=== PATIENT | male | born 1945 | race Caucasian/White ===

== ENCOUNTER 2018-12-26 09:19 | Inpatient (IN) | payer MEDICARE, OTHER ==
[~2018-12-26] VITALS: Ht 171.4 cm; Wt 78.6 kg
[~2018-12-26 09:19] MED LIST: APIX5TAB PO; ASPI-556 PO; BUSP5TAB20 PO; GLIP10 PO; HYDR25TA PO; METF-960 PO; METO25 PO; SERT50TA12 PO; SIMV-259 PO
[2018-12-26] MEDS ORDERED: WARF1 PO (09:50)
[2018-12-26] MEDS ORDERED: METO25 PO (09:50)
[2018-12-26 10:07] LABS: BASOPHILS % (AUTO) 0.1 % (0.0-2.0); EOSINOPHILS % (AUTO) 0.4 % (1.0-6.0); HEMATOCRIT 44.1 % (41-53); HEMOGLOBIN 14.9 g/dL (13.5-17.5); LYMPHOCYTES # (AUTO) 0.7 K/uL (1.0-4.8); LYMPHOCYTES % (AUTO) 9.8 % (22.0-44.0); MEAN CORPUSCULAR HEMOGLOBIN 30.3 pg (26.0-34.0); MEAN CORPUSCULAR HGB CONC 33.7 G/dL (31.0-37.0); MEAN CORPUSCULAR VOLUME 90 fL (80-100); MONOCYTES # (AUTO) 0.5 K/uL (0.1-1.0); MONOCYTES % (AUTO) 6.6 % (2.0-9.0); NEUTROPHILS # (AUTO) 6.1 K/uL (1.8-7.7); NEUTROPHILS % (AUTO) 83.1 % (40.0-70.0); PLATELET COUNT (AUTO) 164 K/uL (150-450); RED BLOOD CELL COUNT(AUTO) 4.89 MIL/uL (4.50-5.90); RED CELL DISTRIBUTION WIDTH 13.3 % (11.5-14.5)
[2018-12-26 10:25] LABS: ANION GAP 8 mmol/L (8-16); CALCIUM, TOTAL 10.6 mg/dL (8.8-10.5); CARBON DIOXIDE 26 mmol/L (22-29); CHLORIDE 101 mmol/L (98-107); CREATININE 1.31 mg/dL (0.60-1.30); GLOMERULAR FILTR. RATE CALC 54 mL/min (>60); GLUCOSE,RANDOM 205 mg/dL (70-110); POTASSIUM 4.8 mmol/L (3.5-5.1); SALICYLATE < 2.8 mg/dL (2.8-20.0); SODIUM SERUM 135 mmol/L (136-145); UREA NITROGEN, BLOOD 27 mg/dL (7-18)
[2018-12-26 10:31] LABS: ALANINE AMINOTRANSFERASE 53 U/L (12-78); ALBUMIN 3.8 g/dL (3.4-5.0); ALKALINE PHOSPHATASE 120 U/L (46-116); ASPARTATE AMINOTRANSFERASE 38 U/L (15-37); BILIRUBIN,TOTAL 0.4 mg/dL (0.1-1.0); TOTAL PROTEIN, SERUM 7.2 g/dL (6.4-8.2)
[2018-12-26 10:31] LABS: GLUCOSE,POINT OF CARE 172 MG/DL (70-110)
[2018-12-26 10:35] LABS: ACETAMINOPHEN < 2 mcg/mL (10-30)
[2018-12-26 11:55] LABS: PROTHROMBIN TIME 10.5 SEC (9.4-11.6)
[2018-12-26] MEDS ORDERED: IBUPROFEN 600 MG TABLET PO ONE (12:45)
[2018-12-26 13:53] LABS: AMPHET/METH SCREEN,URINE NEGATIVE (NEGATIVE); BARBITURATE SCREEN, URINE NEGATIVE (NEGATIVE); BENZODIAZEPINES SCREEN,URINE NEGATIVE (NEGATIVE); CANNABINOID SCREEN,URINE NEGATIVE (NEGATIVE); COCAINE SCREEN,URINE NEGATIVE (NEGATIVE); METHADONE SCREEN, URINE NEGATIVE (NEGATIVE); OPIATE SCREEN,URINE NEGATIVE (NEGATIVE)
[2018-12-26 13:58] LABS: PHENCYCLIDINE SCREEN,URINE NEGATIVE (NEGATIVE)
[2018-12-26] MEDS ORDERED: MAGNESIUM HYDROXIDE SUSPENSION 30 ML UDCUP PO PRN (14:00)
[2018-12-26] MEDS ORDERED: 0.9% SODIUM CHLORIDE 10 ML SYRINGE IVP PRN (14:00)
[2018-12-26] MEDS ORDERED: ONDANSETRON HCL 4 MG/2 ML VIAL IVP PRN (14:00)
[2018-12-26] MEDS ORDERED: DEXTROSE 50%-WATER 25 GM/50 ML SYRINGE IVP PRN (14:00)
[2018-12-26] MEDS ORDERED: BISACODYL 10 MG RECTAL RECTAL SUPPOSITORY PR PRN (14:00)
[2018-12-26] MEDS ORDERED: BARIUM SULFATE 0.1% SUSPENSION 450 ML BOTTLE ONE (15:30)
[2018-12-26] MEDS ORDERED: BARIUM SULFATE 0.1% SUSPENSION 450 ML BOTTLE PO ONE (15:30)
[2018-12-26] MEDS: ACETAMINOPHEN 325 MG TABLET PO PRN ×2 (16:45→21:18)
[2018-12-26 18:10] VITALS: BP 139/90
[2018-12-26] MEDS ORDERED: INFLUENZA VIRUS VACCINE QVS 2019-20 (3YR+)/PF 60 MCG/0.5 ML SYRINGE IM ONE (19:15)
[2018-12-26 20:15] VITALS: BP 103/51
[2018-12-26] MEDS: DOCUSATE SODIUM 100 MG CAPSULE PO SCH (20:24)
[2018-12-26] MEDS: FAMOTIDINE 20 MG TABLET PO SCH (20:24)
[2018-12-26] MEDS: METOPROLOL TARTRATE 25 MG TABLET PO SCH (20:24)
[2018-12-26] MEDS: APIXABAN 5 MG TABLET PO SCH (21:38)
[2018-12-26] MEDS: INSULIN LISPRO 100 UNITS/ML SQ PRN (21:45)
[2018-12-26] MEDS: ZOLPIDEM TARTRATE 5 MG TABLET PO PRN (22:35)
[2018-12-27 00:20] VITALS: BP 114/56
[2018-12-27 05:12] VITALS: BP 125/70
[2018-12-27] MEDS: ACETAMINOPHEN 325 MG TABLET PO PRN ×2 (05:47→20:41)
[2018-12-27] MEDS: INSULIN LISPRO 100 UNITS/ML SQ PRN ×4 (06:18→21:30)
[2018-12-27 06:19] LABS: BASOPHILS % (AUTO) 0.4 % (0.0-2.0); EOSINOPHILS % (AUTO) 3.1 % (1.0-6.0); HEMATOCRIT 43.8 % (41-53); HEMOGLOBIN 14.7 g/dL (13.5-17.5); LYMPHOCYTES # (AUTO) 1.4 K/uL (1.0-4.8); LYMPHOCYTES % (AUTO) 25.5 % (22.0-44.0); MEAN CORPUSCULAR HEMOGLOBIN 30.6 pg (26.0-34.0); MEAN CORPUSCULAR HGB CONC 33.7 G/dL (31.0-37.0); MEAN CORPUSCULAR VOLUME 91 fL (80-100); MONOCYTES # (AUTO) 0.5 K/uL (0.1-1.0); MONOCYTES % (AUTO) 9.8 % (2.0-9.0); NEUTROPHILS # (AUTO) 3.4 K/uL (1.8-7.7); NEUTROPHILS % (AUTO) 61.2 % (40.0-70.0); PLATELET COUNT (AUTO) 164 K/uL (150-450); RED BLOOD CELL COUNT(AUTO) 4.82 MIL/uL (4.50-5.90); RED CELL DISTRIBUTION WIDTH 13.4 % (11.5-14.5)
[2018-12-27 06:25] LABS: CALCIUM, TOTAL 10.7 mg/dL (8.8-10.5); CREATININE 1.25 mg/dL (0.60-1.30); POTASSIUM 4.7 mmol/L (3.5-5.1)
[2018-12-27 07:52] VITALS: BP 127/69
[2018-12-27] MEDS: APIXABAN 5 MG TABLET PO SCH ×2 (08:26→20:40)
[2018-12-27] MEDS: METOPROLOL TARTRATE 25 MG TABLET PO SCH ×2 (08:26→20:41)
[2018-12-27] MEDS: SIMVASTATIN 10 MG TABLET PO SCH (08:26)
[2018-12-27] MEDS: DOCUSATE SODIUM 100 MG CAPSULE PO SCH ×2 (08:26→20:40)
[2018-12-27] MEDS: FAMOTIDINE 20 MG TABLET PO SCH ×2 (08:26→20:40)
[2018-12-27 09:48] LABS: HEMOGLOBIN A1C 8.3 % (4.5-6.2)
[2018-12-27 10:46] LABS: GLUCOMETER DEV NAME(LOC) 5N.1; GLUCOSE,POINT OF CARE 152 MG/DL (70-110)
[2018-12-27 10:46] LABS: GLUCOMETER DEV NAME(LOC) 5N.1; GLUCOSE,POINT OF CARE 111 MG/DL (70-110)
[2018-12-27 11:46] VITALS: BP 136/66
[2018-12-27 11:46] LABS: GLUCOMETER DEV NAME(LOC) 5S.1; GLUCOSE,POINT OF CARE 65 MG/DL (70-110)
[2018-12-27] MEDS: GABAPENTIN 100 MG CAPSULE PO SCH ×3 (11:50→20:40)
[2018-12-27 16:14] VITALS: BP 114/70
[2018-12-27 19:52] VITALS: BP 117/67
[2018-12-27 20:41] LABS: GLUCOMETER DEV NAME(LOC) 5N.1; GLUCOSE,POINT OF CARE 191 MG/DL (70-110)
[2018-12-27] MEDS ORDERED: LORazepam 2 MG/ML VIAL IVP ONE (22:30)
[2018-12-28] VITALS (7 sets, daily range): BP systolic 103–140; BP diastolic 57–80
[2018-12-28 00:11] LABS: GLUCOMETER DEV NAME(LOC) 5N.2; GLUCOSE,POINT OF CARE 351 MG/DL (70-110)
[2018-12-28 00:12] LABS: GLUCOMETER DEV NAME(LOC) 5S.1; GLUCOSE,POINT OF CARE 129 MG/DL (70-110)
[2018-12-28] MEDS: INSULIN LISPRO 100 UNITS/ML SQ PRN ×4 (06:20→21:22)
[2018-12-28 07:50] LABS: GLUCOMETER DEV NAME(LOC) 5N.2; GLUCOSE,POINT OF CARE 203 MG/DL (70-110)
[2018-12-28 08:55] LABS: BASOPHILS % (AUTO) 0.4 % (0.0-2.0); EOSINOPHILS % (AUTO) 2.8 % (1.0-6.0); HEMOGLOBIN 15.3 g/dL (13.5-17.5); LYMPHOCYTES % (AUTO) 12.5 % (22.0-44.0); MEAN CORPUSCULAR HEMOGLOBIN 30.7 pg (26.0-34.0); MEAN CORPUSCULAR VOLUME 90 fL (80-100); MONOCYTES # (AUTO) 0.7 K/uL (0.1-1.0); MONOCYTES % (AUTO) 8.5 % (2.0-9.0); NEUTROPHILS # (AUTO) 6.4 K/uL (1.8-7.7); NEUTROPHILS % (AUTO) 75.8 % (40.0-70.0); PLATELET COUNT (AUTO) 173 K/uL (150-450); RED BLOOD CELL COUNT(AUTO) 4.98 MIL/uL (4.50-5.90); RED CELL DISTRIBUTION WIDTH 13.1 % (11.5-14.5)
[2018-12-28] MEDS: METOPROLOL TARTRATE 25 MG TABLET PO SCH ×2 (09:08→21:16)
[2018-12-28] MEDS: GABAPENTIN 100 MG CAPSULE PO SCH ×3 (09:08→21:16)
[2018-12-28] MEDS: APIXABAN 5 MG TABLET PO SCH ×2 (09:08→21:16)
[2018-12-28] MEDS: SIMVASTATIN 10 MG TABLET PO SCH (09:09)
[2018-12-28] MEDS: DOCUSATE SODIUM 100 MG CAPSULE PO SCH ×2 (09:09→21:16)
[2018-12-28] MEDS: FAMOTIDINE 20 MG TABLET PO SCH ×2 (09:09→21:16)
[2018-12-28 09:17] LABS: ANION GAP 7 mmol/L (8-16); CALCIUM, TOTAL 10.2 mg/dL (8.8-10.5); CARBON DIOXIDE 28 mmol/L (22-29); CHLORIDE 106 mmol/L (98-107); CREATININE 1.14 mg/dL (0.60-1.30); GLUCOSE,RANDOM 169 mg/dL (70-110); POTASSIUM 4.4 mmol/L (3.5-5.1); SODIUM SERUM 141 mmol/L (136-145); UREA NITROGEN, BLOOD 27 mg/dL (7-18)
[2018-12-28 09:18] LABS: GLOMERULAR FILTR. RATE CALC > 60 mL/min (>60)
[2018-12-28] MEDS: SERTRALINE HCL 100 MG TABLET PO SCH (15:22)
[2018-12-28 19:30] LABS: GLUCOMETER DEV NAME(LOC) 5N.1; GLUCOSE,POINT OF CARE 202 MG/DL (70-110)
[2018-12-28 20:00] LABS: GLUCOMETER DEV NAME(LOC) 5S.1; GLUCOSE,POINT OF CARE 273 MG/DL (70-110)
[2018-12-28] MEDS ORDERED: QUEtiapine FUMARATE 25 MG TABLET PO SCH (21:00)
[2018-12-28] MEDS: ZOLPIDEM TARTRATE 5 MG TABLET PO PRN (23:01)
[2018-12-29 03:55] LABS: GLUCOMETER DEV NAME(LOC) 5N.2; GLUCOSE,POINT OF CARE 207 MG/DL (70-110)
[2018-12-29] MEDS: INSULIN LISPRO 100 UNITS/ML SQ PRN ×4 (06:08→20:57)
[2018-12-29 06:14] VITALS: BP 127/72
[2018-12-29 06:51] LABS: GLUCOMETER DEV NAME(LOC) 5N.2; GLUCOSE,POINT OF CARE 172 MG/DL (70-110)
[2018-12-29 07:30] VITALS: BP 113/71
[2018-12-29] MEDS: GABAPENTIN 100 MG CAPSULE PO SCH ×3 (07:36→20:53)
[2018-12-29 07:46] LABS: RED BLOOD CELL COUNT(AUTO) 4.99 MIL/uL (4.50-5.90)
[2018-12-29 07:47] LABS: BASOPHILS % (AUTO) 0.3 % (0.0-2.0); EOSINOPHILS % (AUTO) 2.4 % (1.0-6.0); HEMOGLOBIN 15.1 g/dL (13.5-17.5); LYMPHOCYTES # (AUTO) 1.2 K/uL (1.0-4.8); LYMPHOCYTES % (AUTO) 14.8 % (22.0-44.0); MEAN CORPUSCULAR HEMOGLOBIN 30.2 pg (26.0-34.0); MEAN CORPUSCULAR HGB CONC 33.5 G/dL (31.0-37.0); MEAN CORPUSCULAR VOLUME 90 fL (80-100); MONOCYTES # (AUTO) 0.8 K/uL (0.1-1.0); MONOCYTES % (AUTO) 10.4 % (2.0-9.0); NEUTROPHILS # (AUTO) 5.8 K/uL (1.8-7.7); NEUTROPHILS % (AUTO) 72.1 % (40.0-70.0); PLATELET COUNT (AUTO) 164 K/uL (150-450); RED CELL DISTRIBUTION WIDTH 12.9 % (11.5-14.5)
[2018-12-29 08:02] LABS: ANION GAP 8 mmol/L (8-16); CALCIUM, TOTAL 10.6 mg/dL (8.8-10.5); CARBON DIOXIDE 27 mmol/L (22-29); CHLORIDE 104 mmol/L (98-107); CREATININE 1.09 mg/dL (0.60-1.30); GLUCOSE,RANDOM 187 mg/dL (70-110); POTASSIUM 4.3 mmol/L (3.5-5.1); SODIUM SERUM 139 mmol/L (136-145); UREA NITROGEN, BLOOD 31 mg/dL (7-18)
[2018-12-29 08:07] LABS: GLOMERULAR FILTR. RATE CALC > 60 mL/min (>60)
[2018-12-29] MEDS: SIMVASTATIN 10 MG TABLET PO SCH (08:15)
[2018-12-29] MEDS: DOCUSATE SODIUM 100 MG CAPSULE PO SCH ×2 (08:15→20:53)
[2018-12-29] MEDS: APIXABAN 5 MG TABLET PO SCH ×2 (08:15→20:53)
[2018-12-29] MEDS: METOPROLOL TARTRATE 25 MG TABLET PO SCH ×2 (08:15→20:53)
[2018-12-29] MEDS: FAMOTIDINE 20 MG TABLET PO SCH ×2 (08:15→20:53)
[2018-12-29] MEDS: SERTRALINE HCL 100 MG TABLET PO SCH (08:16)
[2018-12-29 11:37] VITALS: BP 114/67
[2018-12-29] MEDS: BusPIRone HCL 5 MG TABLET PO SCH ×2 (15:25→20:53)
[2018-12-29] MEDS: ACETAMINOPHEN 325 MG TABLET PO PRN (15:25)
[2018-12-29 16:05] VITALS: BP 121/66
[2018-12-29 19:40] LABS: GLUCOMETER DEV NAME(LOC) 5S.1; GLUCOSE,POINT OF CARE 286 MG/DL (70-110)
[2018-12-29 19:40] LABS: GLUCOMETER DEV NAME(LOC) 5S.1; GLUCOSE,POINT OF CARE 263 MG/DL (70-110)
[2018-12-29 19:41] VITALS: BP 112/64
[2018-12-29] MEDS: ZOLPIDEM TARTRATE 5 MG TABLET PO PRN (22:42)
[2018-12-29 23:06] VITALS: BP 124/71
[2018-12-30 04:13] VITALS: BP 115/68
[2018-12-30 04:51] LABS: GLUCOMETER DEV NAME(LOC) 5N.1; GLUCOSE,POINT OF CARE 251 MG/DL (70-110)
[2018-12-30] MEDS: INSULIN LISPRO 100 UNITS/ML SQ PRN ×4 (06:07→20:09)
[2018-12-30] MEDS: GABAPENTIN 100 MG CAPSULE PO SCH ×3 (07:45→20:07)
[2018-12-30 07:50] VITALS: BP 108/54
[2018-12-30 08:01] LABS: GLUCOMETER DEV NAME(LOC) 5S.1; GLUCOSE,POINT OF CARE 178 MG/DL (70-110)
[2018-12-30] MEDS: FAMOTIDINE 20 MG TABLET PO SCH ×2 (08:13→20:06)
[2018-12-30] MEDS: BusPIRone HCL 5 MG TABLET PO SCH ×3 (08:13→20:07)
[2018-12-30] MEDS: DOCUSATE SODIUM 100 MG CAPSULE PO SCH ×2 (08:13→20:07)
[2018-12-30] MEDS: SERTRALINE HCL 100 MG TABLET PO SCH (08:15)
[2018-12-30] MEDS: SIMVASTATIN 10 MG TABLET PO SCH (08:44)
[2018-12-30] MEDS: APIXABAN 5 MG TABLET PO SCH ×2 (08:44→20:06)
[2018-12-30] MEDS: METOPROLOL TARTRATE 25 MG TABLET PO SCH ×2 (09:00→20:07)
[2018-12-30 11:47] VITALS: BP 120/65
[2018-12-30] MEDS ORDERED: GABA-529 PO (13:16)
[2018-12-30] MEDS ORDERED: SERT100T12 PO (13:17)
[2018-12-30] MEDS ORDERED: BUSP5TAB20 PO (13:17)
[2018-12-30 15:15] VITALS: BP 113/57
[2018-12-30 19:45] VITALS: BP 109/62
[2018-12-30] MEDS: ACETAMINOPHEN 325 MG TABLET PO PRN (19:50)
[2018-12-30 20:00] LABS: GLUCOMETER DEV NAME(LOC) 5S.1; GLUCOSE,POINT OF CARE 260 MG/DL (70-110)
[2018-12-30 20:00] LABS: GLUCOMETER DEV NAME(LOC) 5N.1; GLUCOSE,POINT OF CARE 241 MG/DL (70-110)
[2018-12-30 20:30] LABS: GLUCOMETER DEV NAME(LOC) 5S.2A; GLUCOSE,POINT OF CARE 253 MG/DL (70-110)
[2018-12-30] MEDS: ZOLPIDEM TARTRATE 5 MG TABLET PO PRN (22:32)
[2018-12-31] VITALS (7 sets, daily range): BP systolic 113–126; BP diastolic 62–73
[2018-12-31] MEDS: ACETAMINOPHEN 325 MG TABLET PO PRN ×3 (05:39→20:05)
[2018-12-31] MEDS: INSULIN LISPRO 100 UNITS/ML SQ PRN ×4 (05:41→22:02)
[2018-12-31 06:01] LABS: BASOPHILS % (AUTO) 0.4 % (0.0-2.0); HEMATOCRIT 42.2 % (41-53); LYMPHOCYTES # (AUTO) 0.9 K/uL (1.0-4.8); MEAN CORPUSCULAR HEMOGLOBIN 30.3 pg (26.0-34.0); MEAN CORPUSCULAR HGB CONC 33.3 G/dL (31.0-37.0); MEAN CORPUSCULAR VOLUME 91 fL (80-100); MONOCYTES # (AUTO) 0.7 K/uL (0.1-1.0); MONOCYTES % (AUTO) 10.5 % (2.0-9.0); NEUTROPHILS # (AUTO) 4.4 K/uL (1.8-7.7); NEUTROPHILS % (AUTO) 70.1 % (40.0-70.0); PLATELET COUNT (AUTO) 148 K/uL (150-450); RED BLOOD CELL COUNT(AUTO) 4.64 MIL/uL (4.50-5.90); RED CELL DISTRIBUTION WIDTH 12.7 % (11.5-14.5)
[2018-12-31 06:14] LABS: CALCIUM, TOTAL 9.5 mg/dL (8.8-10.5); CREATININE 1.19 mg/dL (0.60-1.30); POTASSIUM 4.9 mmol/L (3.5-5.1)
[2018-12-31 06:46] LABS: GLUCOMETER DEV NAME(LOC) 5S.1; GLUCOSE,POINT OF CARE 244 MG/DL (70-110)
[2018-12-31] MEDS: FAMOTIDINE 20 MG TABLET PO SCH ×2 (08:11→20:06)
[2018-12-31] MEDS: METOPROLOL TARTRATE 25 MG TABLET PO SCH ×2 (08:11→20:05)
[2018-12-31] MEDS: SIMVASTATIN 10 MG TABLET PO SCH (08:11)
[2018-12-31] MEDS: GABAPENTIN 100 MG CAPSULE PO SCH ×3 (08:11→20:05)
[2018-12-31] MEDS: APIXABAN 5 MG TABLET PO SCH ×2 (08:11→20:05)
[2018-12-31] MEDS: DOCUSATE SODIUM 100 MG CAPSULE PO SCH ×2 (08:11→20:05)
[2018-12-31] MEDS: SERTRALINE HCL 100 MG TABLET PO SCH (08:11)
[2018-12-31] MEDS: BusPIRone HCL 5 MG TABLET PO SCH ×3 (08:11→20:05)
[2018-12-31] MEDS ORDERED: LORazepam 2 MG/ML VIAL IVP ONE ×2 (14:30→16:15)
[2018-12-31] MEDS: ZOLPIDEM TARTRATE 5 MG TABLET PO PRN (21:58)
[2018-12-31 22:46] LABS: GLUCOMETER DEV NAME(LOC) 5N.2; GLUCOSE,POINT OF CARE 240 MG/DL (70-110)
[2018-12-31 22:46] LABS: GLUCOMETER DEV NAME(LOC) 5N.2; GLUCOSE,POINT OF CARE 188 MG/DL (70-110)
[2019-01-01 00:07] VITALS: BP 114/71
[2019-01-01 02:15] LABS: GLUCOMETER DEV NAME(LOC) 5N.1; GLUCOSE,POINT OF CARE 277 MG/DL (70-110)
[2019-01-01] MEDS: ACETAMINOPHEN 325 MG TABLET PO PRN (04:20)
[2019-01-01 04:25] VITALS: BP 138/67
[2019-01-01 05:56] LABS: GLUCOMETER DEV NAME(LOC) 5S.1; GLUCOSE,POINT OF CARE 289 MG/DL (70-110)
[2019-01-01 06:45] LABS: BASOPHILS % (AUTO) 0.5 % (0.0-2.0); EOSINOPHILS % (AUTO) 0.4 % (1.0-6.0); HEMATOCRIT 42.3 % (41-53); HEMOGLOBIN 14.3 g/dL (13.5-17.5); LYMPHOCYTES # (AUTO) 0.4 K/uL (1.0-4.8); LYMPHOCYTES % (AUTO) 8.1 % (22.0-44.0); MEAN CORPUSCULAR HEMOGLOBIN 30.3 pg (26.0-34.0); MEAN CORPUSCULAR HGB CONC 33.9 G/dL (31.0-37.0); MEAN CORPUSCULAR VOLUME 89 fL (80-100); MONOCYTES # (AUTO) 0.6 K/uL (0.1-1.0); MONOCYTES % (AUTO) 11.8 % (2.0-9.0); NEUTROPHILS # (AUTO) 3.9 K/uL (1.8-7.7); NEUTROPHILS % (AUTO) 79.2 % (40.0-70.0); PLATELET COUNT (AUTO) 133 K/uL (150-450); RED BLOOD CELL COUNT(AUTO) 4.73 MIL/uL (4.50-5.90); RED CELL DISTRIBUTION WIDTH 12.7 % (11.5-14.5)
[2019-01-01 06:46] LABS: CALCIUM, TOTAL 9.7 mg/dL (8.8-10.5); CREATININE 1.23 mg/dL (0.60-1.30); POTASSIUM 4.4 mmol/L (3.5-5.1)
[2019-01-01] MEDS: SERTRALINE HCL 100 MG TABLET PO SCH (07:47)
[2019-01-01] MEDS: DOCUSATE SODIUM 100 MG CAPSULE PO SCH (07:47)
[2019-01-01] MEDS: SIMVASTATIN 10 MG TABLET PO SCH (07:47)
[2019-01-01] MEDS: METOPROLOL TARTRATE 25 MG TABLET PO SCH (07:47)
[2019-01-01] MEDS: APIXABAN 5 MG TABLET PO SCH (07:47)
[2019-01-01] MEDS: FAMOTIDINE 20 MG TABLET PO SCH (07:47)
[2019-01-01] MEDS: GABAPENTIN 100 MG CAPSULE PO SCH (07:47)
[2019-01-01] MEDS: BusPIRone HCL 5 MG TABLET PO SCH (07:48)
[2019-01-01] MEDS: INSULIN LISPRO 100 UNITS/ML SQ PRN ×2 (07:53→11:17)
[2019-01-01 07:56] VITALS: BP 115/65
[2019-01-01 11:48] VITALS: BP 115/66
[2019-01-01 14:46] LABS: GLUCOMETER DEV NAME(LOC) 5N.2; GLUCOSE,POINT OF CARE 229 MG/DL (70-110)
[2019-01-02 07:36] LABS: GLUCOMETER DEV NAME(LOC) 5S.2A; GLUCOSE,POINT OF CARE 197 MG/DL (70-110)
== END 2019-01-01 14:20 | DRG 918 ==
LOC: EMS 09:27 → 5S 16:45
PROVIDERS: ADMIT Internal Medicine; ATTEND Internal Medicine
DX: T43.222A Poisoning by selective serotonin reuptake inhibitors, intentional self-harm, initial encounter (principal); F33.2 Major depressive disorder, recurrent severe without psychotic features; E11.9 Type 2 diabetes mellitus without complications; E78.00 Pure hypercholesterolemia, unspecified; I10 Essential (primary) hypertension; I25.10 Atherosclerotic heart disease of native coronary artery without angina pectoris; I48.91 Unspecified atrial fibrillation; F41.9 Anxiety disorder, unspecified; Z63.9 Problem related to primary support group, unspecified; Z79.899 Other long term (current) drug therapy; Z85.51 Personal history of malignant neoplasm of bladder; Z86.718 Personal history of other venous thrombosis and embolism; Z91.5 Personal history of self-harm; Z93.3 Colostomy status; Z93.6 Other artificial openings of urinary tract status; Z79.82 Long term (current) use of aspirin; Z23 Encounter for immunization; Y92.89 Other specified places as the place of occurrence of the external cause
CPT/HCPCS: 74176; 83036; 83735; 84145; 87040; 87081; 87086; 90686; 93005; 97116; 97161; 97530; G0480; G0481; J2060